=== PATIENT | male | born 1940 | race Hispanic/Latino ===

== ENCOUNTER → 2017-05-02 | Outpatient (CLI) | payer MEDICARE ==
--- NOTE | 2017-05-02 12:34 | Diagnostic Imaging Report ---
PROCEDURE:US RETROPERITONEAL (KIDNEY). COMPARISON:Patients [facility], US, US RENAL, 12/17/2010, 15:59. Patients [facility], CT, CT ABDOMEN AND PELVIS WITHOUT CONTRAST, 09/09/2009, 23:20. Patients [facility], US, US RETROPERITONEAL ( KIDNEY )., 08/13/2015, 15:57. INDICATIONS:Cyst of kidney TECHNIQUE: Johnson scale and color Doppler ultrasound kidneys FINDINGS: Right: 10.8 x 4.5 x 4.8 cm. Cortical thickness 1.4 cm. Left: 11.1 x 6 x 5.3 cm. Cortical thickness 1.7 cm. Both kidneys are normal. No evidence of stone, cyst or mass. Prostate: 168 mL (4.3 x 5.7 x 10.3 cm) with extension into the bladder base. Prevoid bladder volume: 647 mL CONCLUSION: 1. Normal kidneys. Specifically, no evidence of renal cyst. 2. Progressive prostatomegaly. Current prostate volume 168 mL, compared to 76 mL in July of 2015. Dictated by: Ferdinand Russ M.D. on 05/02/2017 at 12:42 Electronically approved by: Ferdinand Russ M.D. on 05/02/2017 at 12:42
== END ==
LOC: US 11:14
PROVIDERS: ATTEND Urology
DX: N28.1 Cyst of kidney, acquired (principal)
CPT/HCPCS: 76770